=== PATIENT | male | born 1990 | race Caucasian/White ===

== ENCOUNTER 2017-04-29 10:40 | Observation (INO) | payer MEDICAID, SELFPAY ==
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
[2017-04-29 10:57] VITALS: BMI 25.0; BMI 29.9
[2017-04-29 10:58] VITALS: BP 126/60; PULSE 70; RESP 18; TEMP 36.9; O2SAT 99
[2017-04-29 11:14] VITALS: BP 126/60; PULSE 70; RESP 18; TEMP 36.9
[2017-04-29] MEDS: Dicyclomine 10 MG Capsule 20 MG PO (11:53)
[2017-04-29] MEDS: Buprenorphine HCl 2 MG TAB.SUBL SL ×2 (11:53→21:08)
[2017-04-29] MEDS: cloNIDine HCl 0.1 MG Tablet 0.2 MG PO (11:54)
--- NOTE | 2017-04-29 12:28 | NURSING ---
IVT x2 tried to gain IV access for patient and unable. Daniela RIZO talked with Dr. Rahman and stated he said it was okay not to have IV access and no fluids.
[2017-04-29 13:50] LABS: Absolute Lymphocyte Count 1.14 X10^3/ul (0.83-4.51); Absolute Neutrophil Count 4.2 X10^3/uL (2.0-7.7); Basophil# 0.01 X10^3/uL; Basophil% 0.2 % (0-1); Eosinophil# 0.14 X10^3/uL; Eosinophils% 2.3 % (0-5); Hematocrit 35.3 % (40-54); Hemoglobin 11.1 g/dl (13.0-16.5); Lymphocyte # 1.14 X10^3/ul (4.0); Lymphocyte % 18.9 % (19-41); Mean Corp Hgb Conc 31.4 g/gl (32-36); Mean Corpuscular Volume 89.1 fL (80-94); Mean Platelet Vol. 9.9 fl (6.2-12.0); Monocyte# 0.52 X10^3/uL; Monocyte% 8.6 % (0-10); Neutrophil % 69.8 % (47-70); Platelet Count 183 K/mm3 (150-450); RBC Distribution Width CV 14.8 % (11.6-14.6); RBC Distribution Width SD 48.3 fl (35.1-43.9); Red Blood Count 3.96 M/mm3 (4.6-6.2)
[2017-04-29 13:56] LABS: POSITIVE COUNT NO; POSITIVE DIFFERENTIAL NO; POSITIVE MORPHOLOGY NO
[2017-04-29 14:05] LABS: International Normalized Ratio 1.4; Prothrombin Time (Protime)PT. 16.9 SECONDS (11.7-14.9)
[2017-04-29 14:12] LABS: ALB/GLOB Ratio 0.8 RATIO (0.9-2.4); AST(SGOT) 142 U/L (15-37); Alanine Aminotransfer ALT/SGPT 219 U/L (12-78); Albumin, Serum 3.1 g/dL (3.4-5.0); Alkaline Phosphatase 80 U/L (45-117); Amylase 39 U/L (25-115); Anion Gap 6 (5-15); BUN 10 mg/dL (7-18); BUN/Creat Ratio 10.1 RATIO (10-20); Calcium,Total 8.5 mg/dL (8.5-10.1); Chloride 106 mmol/L (98-107); Creatinine, Serum 0.99 mg/dL (0.70-1.30); EST Glomerular Filtration Rate 96 mL/min (>60); Est Glom Filt Rate - Afr Amer 116 mL/min (>60); Globulin 4.1 g/dL (2.3-3.5); Glucose 131 mg/dL (70-110); Lipase 175 U/L (73-393); Potassium 3.9 mmol/L (3.5-5.1); Protein, Total 7.2 g/dL (6.4-8.2); Sodium Level 140 mmol/L (136-145)
[2017-04-29 14:30] VITALS: BP 133/66; PULSE 64; RESP 16; TEMP 36.5
[2017-04-29] MEDS: cloNIDine HCl 0.1 MG Tablet PO (14:33)
[2017-04-29] MEDS: Methocarbamol 750 MG Tablet PO (14:33)
[2017-04-29] MEDS: chlordiazePOXIDE 25 MG Capsule PO ×3 (14:33→22:33)
[2017-04-29] MEDS: QUEtiapine 25 MG Tablet PO (14:33)
[2017-04-29 14:56] LABS: Bacteria 0 SEEN /hpf (None Seen); Mucous, Urine 0 SEEN /hpf (<or=2+); Red Blood Cells-Urine 0 SEEN /hpf (0-5); Squamous Epithelial Cells - UA 0 SEEN /hpf (0-5)
[2017-04-29 15:06] LABS: Color, Urine Yellow (Yellow); Glucose, Dipstick Normal (Normal); Ketone-Dipstick Negative (Negative); Leukocyte Esterase-Dipstick 25 /ul (Negative); Nitrite-Dipstick Negative (Negative); Occult Blood-Urine Negative /ul (Negative); Protein-Dipstick Negative (Negative); Specific Gravity, Urine 1.015 (1.002-1.030); Urine Bilirubin Dipstick Negative (Negative); Urine Clarity Sl. Cloudy (Clear); Urine Urobilinogen Normal (Normal)
[2017-04-29 15:16] LABS: White Blood Cells 0-5 SEEN /hpf (0-5)
--- NOTE | 2017-04-29 16:44 | CHAPLAIN ---
introduced self and my role to patient; pt was inviting my presence and stated that he is feeling better now than when he came into hospital; pt says that he is not much of a talker but was willing to answer my inquiries about his life and how he is finding courage to enter treatment; pt says he has support of father who is now 6 years clean and his grandmother; pt also states that his girlfriend also entered detox today and will go for rehab too; pt says he is not worried about rehab which is scheduled for next 30 days because he 'just has to do it'; pt says he has not tried detox or rehab before; pt says he believes in God but does not necessarily believe in the Bible; affirmed pt in his quest to know truth; encouraged pt to consider a study of laurie and his Higher Power which pt says he would do; pt tells me he is open to future visits from this title curator
[2017-04-29 17:40] VITALS: BP 128/59; PULSE 71; RESP 16; TEMP 36.7
[2017-04-29] MEDS: Ondansetron ODT 4 MG Tablet PO (17:42)
[2017-04-29] MEDS: Carbidopa/Levodopa 25/100 Tablet PO (17:42)
[2017-04-29 20:33] LABS: Amphetamine Urine VISTA NEGATIVE (<1000 ng/mL); Barbiturate Urine VISTA NEGATIVE (< 200 ng/mL); Benzodiazepine Urine VISTA NEGATIVE (< 200 ng/mL); Cocaine Urine VISTA POSITIVE (< 300 ng/mL); Ecstacy Urine VISTA NEGATIVE (< 500 ng/mL); Methadone Urine VISTA NEGATIVE (< 300 ng/mL); PCP Urine VISTA NEGATIVE (< 25 ng/mL); THC Urine VISTA POSITIVE (< 50 ng/mL); Vista UDS pH Range 5
[2017-04-29 22:00] VITALS: BP 131/50; PULSE 63; RESP 15; TEMP 36.3
[2017-04-29] MEDS: traZODone 50 MG Tablet PO (22:32)
[2017-04-30] VITALS (9 sets, daily range): BP systolic 111–138; BP diastolic 47–87; PULSE 54–73; RESP 15–16; TEMP 36.4–36.7; O2SAT 100
[2017-04-30] MEDS: chlordiazePOXIDE 25 MG Capsule PO ×3 (02:09→10:37)
[2017-04-30] MEDS: Buprenorphine HCl 2 MG TAB.SUBL SL ×3 (03:55→19:36)
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
[2017-04-30] MEDS: Folic Acid 1 MG Tablet PO (10:37)
[2017-04-30] MEDS: Methocarbamol 750 MG Tablet PO ×2 (10:37→19:42)
[2017-04-30] MEDS: Multivitamins,Ther W-Minerals Tablet 1 TABLET PO (10:37)
[2017-04-30] MEDS: Thiamine Hydrochloride 100 MG Tablet PO (10:37)
[2017-04-30] MEDS: QUEtiapine 25 MG Tablet PO ×2 (14:22→22:24)
--- NOTE | 2017-04-30 14:53 | CHAPLAIN ---
follow up; RN states that patient is awake and more talkative today so this would be a good time; found pt in darkened room and watching a movie; pt says that today is going better and actually he is feeling much better than he anticipated; we have small talk; pt says that he has a rehab place lined up for immediate arrival when he leaves here; pt again tells me that his father is very supportive and will be around to help him; he says that he and his father have been very close in the past; pt says that when he is clean he is going to buy a muscle car with help from his dad; we talk about goals; 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
[2017-04-30] MEDS: Ibuprofen 400 MG Tablet 800 MG PO (19:42)
[2017-04-30] MEDS: traZODone 50 MG Tablet PO (22:17)
[2017-04-30] MEDS: Carbidopa/Levodopa 25/100 Tablet PO (22:24)
[2017-05-01 03:57] VITALS: BP 130/59; PULSE 64; RESP 16; TEMP 36.5
[2017-05-01] MEDS: Buprenorphine HCl 2 MG TAB.SUBL SL ×2 (03:58→15:00)
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
[2017-05-01 08:55] VITALS: BP 131/54; PULSE 56; RESP 16; TEMP 36.5
[2017-05-01] MEDS: Folic Acid 1 MG Tablet PO (08:58)
[2017-05-01] MEDS: Multivitamins,Ther W-Minerals Tablet 1 TABLET PO (08:58)
[2017-05-01] MEDS: Thiamine Hydrochloride 100 MG Tablet PO (08:58)
[2017-05-01 15:00] VITALS: BP 132/73; PULSE 70; RESP 14; TEMP 36.6
[2017-05-01 20:00] VITALS: BP 141/77; PULSE 79; RESP 18; TEMP 35.5
[2017-05-01] MEDS: QUEtiapine 25 MG Tablet PO (22:02)
[2017-05-01] MEDS: traZODone 50 MG Tablet PO (22:02)
[2017-05-02 03:31] VITALS: BP 132/59; PULSE 61; RESP 16; TEMP 36.4
[2017-05-02 03:33] VITALS: BP 132/59; PULSE 61; RESP 16; TEMP 36.4; O2SAT 100
[2017-05-02] MEDS: Buprenorphine HCl 2 MG TAB.SUBL SL (03:34)
--- NOTE | 2017-05-02 07:45 | PCM.DC ---
- Discharge Diagnoses Current Active Problems: Current Active and Chronic Problems Acute opioid withdrawal (Acute) Heroin dependence (Chronic) Laceration of shoulder, right (Chronic) Tobacco dependence (Chronic) Discharge Activity: May not drive while taking narcotic pain medications. Allergies/Adverse Reactions: Allergies No Known Allergies Allergy (Verified 04/29/17 11:23) Medications to take at Discharge Bacitracin Zinc 28.4 gm TP 04/29/17 Cephalexin 500 mg PO BID 04/29/17 Cyclobenzaprine [Flexeril] 10 mg PO TID PRN 04/29/17 Primary Care Physician: Care Physician,No Primary [Primary Care Provider] - Proposed Discharge Date: 05/02/17
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
[2017-05-02 08:43] VITALS: BP 130/66; PULSE 73; RESP 18; TEMP 36.5; O2SAT 99
[2017-05-02] MEDS: Folic Acid 1 MG Tablet PO (08:45)
[2017-05-02] MEDS: Thiamine Hydrochloride 100 MG Tablet PO (08:45)
[2017-05-02] MEDS: Multivitamins,Ther W-Minerals Tablet 1 TABLET PO (08:45)
[2017-05-02 08:50] VITALS: BP 130/66; PULSE 73; RESP 18; TEMP 36.5
== END 2017-05-02 10:30 | disposition home or self-care (01) | DRG 773 ==
LOC: MS2 07-18 15:39
PROVIDERS: Admitting Provider Internal Medicine; Visit Provider Internal Medicine
DX: F11.23 Opioid dependence with withdrawal (principal); S41.011D Laceration without foreign body of right shoulder, subsequent encounter; F17.210 Nicotine dependence, cigarettes, uncomplicated
CPT/HCPCS: 80053; 80307; 80320; 81001; 82150; 83690; 85025; 85610; 99218; J7030; G0378; G0379; G0480